=== PATIENT | male | born 1965 | race Caucasian/White ===

== ENCOUNTER 2018-10-14 20:34 | Emergency (ER) | payer SELFPAY ==
[~2018-10-14] VITALS: Ht 182.9 cm; Wt 89.4 kg
--- NOTE | 2018-10-14 20:34 | NUR ---
Patient to ER bed H1 to gown for evaluation. Side rails up. Report given to Jefferson MASSEY.
--- NOTE | 2018-10-14 20:40 | NUR ---
Patient to ER with [facility], patient ambulatory in handcuffs, here for medical clearance. Patient was tazered earlier, arrives without complaints. Patient with multiple abrasions to head and bilateral knees. Patient is awake, alert and oriented in no acute distress, vital signs stable, respirations even and unlabored, skin warm and dry to touch. No LOC reported, no neck or back pain. Awaiting evaluation by ER MD, will continue to observe and assess. [employer] deputies remain at bedside.
[2018-10-14 20:45] VITALS: BP_SYST 132
--- NOTE | 2018-10-14 20:48 | NUR ---
ER at bedside examining patient.
--- NOTE | 2018-10-14 21:00 | NUR ---
Patient given written and verbal discharge instructions and verbalizes understanding. ER MD discussed with patient the results and treatment provided. Patient in stable condition. ID arm band removed. No RX given. Patient educated on pain management and to follow up with PMD. Pain Scale 0. Opportunity for questions provided and answered. Medication side effect fact sheet provided. Patient left ER in no acute distress, able to ambulate without difficulty with slow, steady gait. Patient left in custody of [employer], left ER in handcuffs without complaint.
[2018-10-14] MEDS ORDERED: BACITRACIN 1 GM OINT TP ONE (21:01)
== END 2018-10-14 21:00 ==
LOC: SED 20:34
DX: S00.01XA Abrasion of scalp, initial encounter (principal); F17.200 Nicotine dependence, unspecified, uncomplicated; Y04.0XXA Assault by unarmed brawl or fight, initial encounter; Y93.89 Activity, other specified; Y92.89 Other specified places as the place of occurrence of the external cause; Y99.8 Other external cause status
CPT/HCPCS: 99283